=== PATIENT | female | born 1995 | race Caucasian/White ===

== ENCOUNTER 2017-04-08 22:40 | Emergency (ER) | payer OTHER | END 2017-04-09 01:58 | disposition home or self-care (01) | LOC: ER1 22:40 | DX: S60.211A Contusion of right wrist, initial encounter (principal); S50.11XA Contusion of right forearm, initial encounter; W22.01XA Walked into wall, initial encounter | CPT/HCPCS: 29125; 73090; 73110; 73130; 99283 ==